=== PATIENT | male | born 1995 | race Two or more races ===

== ENCOUNTER 2024-07-14 13:44 | Emergency (ER) | payer OTHER ==
[2024-07-14 13:50] VITALS: BP 127/87; PULSE 63; RESP 18; TEMP 99; BMI 24.0
[2024-07-14] MEDS ORDERED: DEXAMETHASONE SOD PHOSPHATE 10 MG/1 ML VIAL ONE (14:30)
[2024-07-14] MEDS: DEXAMETHASONE SOD PHOSPHATE 10 MG/1 ML VIAL IM ONE (14:34)
== END 2024-07-14 14:50 | disposition home or self-care (01) ==
LOC: JERFT 13:44
PROC: 3E023GC Introduction of Other Therapeutic Substance into Muscle, Percutaneous Approach (ICD-10-PCS; principal; 2024-07-14)
DX: L23.7 Allergic contact dermatitis due to plants, except food (principal); L29.9 Pruritus, unspecified; R21 Rash and other nonspecific skin eruption
CPT/HCPCS: 99284-25; J1100